=== PATIENT | female | born 1950 | race Caucasian/White ===

== ENCOUNTER → 2020-09-14 | Outpatient (CLI) | payer MEDICARE ==
[~2020-09-14] MED LIST: ALEVE220 MG PO; ATENOLOL25 MG PO; ELIQUIS2.5 MG PO; ENDOCET 7.5-321 EACH PO; LASIX20 MG PO; LISINOPRIL20 MG PO; LO-DOSE ASPIRIN81 MG PO; TYLENOL325 MG PO
[2020-09-14 10:53] LABS: HEMOGLOBIN 15.5 gm/dl (12.3-15.3); RED BLOOD COUNT 5.03 M/UL (4.00-5.10); WHITE BLOOD COUNT 9.3 K/UL (4.5-11.0)
[2020-09-14 11:12] LABS: BUN/CREATININE RATIO 23 (0-10)
== END ==
LOC: OPSV2 09:53 → EDSTATUS 10:00 → OPSV2 10:00
PROVIDERS: Orthopaedic Surgery
DX: Z01.818 Encounter for other preprocedural examination (principal); M87.88 Other osteonecrosis, other site; I77.819 Aortic ectasia, unspecified site; R94.31 Abnormal electrocardiogram [ECG] [EKG]
CPT/HCPCS: 36415; 71046; 80048; 81001; 85025; 87081; 93005

== ENCOUNTER → 2020-09-26 | Outpatient (CLI) | payer MEDICARE ==
[2020-09-26 09:43] LABS: BUN/CREATININE RATIO 25 (0-10)
== END ==
LOC: LAB 08:56
PROVIDERS: Orthopaedic Surgery
DX: Z01.812 Encounter for preprocedural laboratory examination (principal)
CPT/HCPCS: 36415; 80048; 86850; 86900; 86901

== ENCOUNTER 2020-09-27 10:33 | Day surgery (SDC) | payer MEDICARE ==
[~2020-09-27] VITALS: Ht 167.6 cm; Wt 77.6 kg
[~2020-09-27 10:33] MED LIST changes: -ELIQUIS2.5 MG PO; -ENDOCET 7.5-321 EACH PO
--- NOTE | 2020-09-28 02:54 | NUR ---
09/27/202009 PT WAS ASSEESED AT THIS TIME BUT WAS UNABLE TO CHANGE DATE BASE PART 2 TIME
--- NOTE | 2020-09-28 02:55 | NUR ---
09/27/202029 IVF WAS STARTED LATE DUE TO HAVING TROUBLE LOCATING IV PUMP OR POLE. SCUDS NOT PLACED ON PT DUE UNABLE TO FIND A SCUDS MOTOR.
[2020-09-28 04:58] LABS: RED BLOOD COUNT 4.68 M/UL (4.00-5.10); WHITE BLOOD COUNT 17.1 K/UL (4.5-11.0)
[2020-09-28 05:18] LABS: BUN/CREATININE RATIO 28 (0-10)
--- NOTE | 2020-09-28 06:13 | NUR ---
0613 THOUGHT I SEEN AN AQUACEL DRSG THE WAY PT WAS LYING. LOOKED AGAIN THIS MORNING NO DRSG, STERI STRIPS IN PLACE.
[2020-09-28] MEDS ORDERED: ENDOCET 7.5-321 EACH PO (09:50)
[2020-09-28] MEDS ORDERED: ELIQUIS2.5 MG PO (09:50)
== END 2020-09-28 18:22 | disposition home health service (06) ==
LOC: OR 10:33 → EDSTATUS 15:00 → M/S 17:45 → OR 09-28 18:22
PROVIDERS: Orthopaedic Surgery
PROC: 3E0T3BZ Introduction of Anesthetic Agent into Peripheral Nerves and Plexi, Percutaneous Approach (ICD-10-PCS; principal; 2020-09-27 15:00)
PROC: 0SR90JZ Replacement of Right Hip Joint with Synthetic Substitute, Open Approach (ICD-10-PCS; principal; 2020-09-27 15:00)
DX: M16.11 Unilateral primary osteoarthritis, right hip (principal); G89.18 Other acute postprocedural pain; I11.0 Hypertensive heart disease with heart failure; I50.32 Chronic diastolic (congestive) heart failure; F17.210 Nicotine dependence, cigarettes, uncomplicated; E78.5 Hyperlipidemia, unspecified; Z86.718 Personal history of other venous thrombosis and embolism; Z79.1 Long term (current) use of non-steroidal anti-inflammatories (NSAID); Z79.82 Long term (current) use of aspirin; Z79.899 Other long term (current) drug therapy
CPT/HCPCS: 36415; 73501; 73502; 76000; 80048; 85027; 97110; 97161; 97166; C1776; J0690; J1100; J2405; J2704; J2710; J2795; J3010; J3370; J7050; J7120